=== PATIENT | female | born 1970 | race Two or more races ===

== ENCOUNTER 2019-05-25 13:33 | Emergency (ER) | payer MEDICAID ==
[~2019-05-25] VITALS: Ht 154.9 cm; Wt 80.0 kg
[2019-05-25 14:00] VITALS: BP 153/72
[2019-05-25] MEDS ORDERED: KETOROLAC 60MG/2ML VIAL IM ONE (14:45)
== END 2019-05-25 17:46 | disposition home or self-care (01) ==
LOC: ER 13:33
DX: N60.01 Solitary cyst of right breast (principal); Z90.710 Acquired absence of both cervix and uterus
CPT/HCPCS: 76641; 81025; 96372; 99284; J1885

== ENCOUNTER 2019-11-04 02:30 | Emergency (ER) | payer MEDICAID ==
[~2019-11-04] VITALS: Ht 154.9 cm; Wt 83.0 kg
[2019-11-04 02:54] VITALS: BP 118/74
[2019-11-04] MEDS ORDERED: KETOROLAC 30MG/ML VIAL IV STA (02:54)
[2019-11-04] MEDS ORDERED: SODIUM CHLORIDE 0.9% 1,000 ML IV ONE (02:54)
[2019-11-04 03:18] LABS: BASOPHILS % 0.9 % (0.0-2.0); HEMATOCRIT. 36.8 % (36.0-48.0); HEMOGLOBIN. 12.4 g/dL (12.0-16.0); LYMPHOCYTES % 36.9 % (20.0-50.0); MEAN CORPUSCULAR HEMOGLOBIN 28.5 pg (28.0-32.0); MEAN CORPUSCULAR VOLUME 84.5 fL (81.0-99.0); MEAN PLATELET VOLUME 8.3 fl (7.4-10.4); MONOCYTES % 10.2 % (2.0-8.0); PLATELET 286 x1000/uL (130-400); RED BLOOD CELL COUNT 4.36 mill/uL (4.2-5.4); RED CELL DISTRIBUTION WIDTH 13.8 % (11.6-14.6)
[2019-11-04 03:22] LABS: CHLORIDE 112 mEq/L (98-107)
[2019-11-04 04:14] LABS: CLARITY URINE CLEAR (CLEAR); COLOR URINE YELLOW (YELLOW); KETONES URINE NEGATIVE (NEGATIVE); LEUKOCYTE ESTERASE URINE NEGATIVE (NEGATIVE); NITRITE URINE NEGATIVE (NEGATIVE); OCCULT BLOOD URINE NEGATIVE (NEGATIVE); PROTEIN URINE NEGATIVE (NEGATIVE); SPECIFIC GRAVITY URINE 1.035 (1.005-1.030)
== END 2019-11-04 05:10 | disposition home or self-care (01) ==
LOC: ER 02:30
DX: R30.0 Dysuria (principal); Z90.710 Acquired absence of both cervix and uterus
CPT/HCPCS: 36415; 74176; 80053; 81003; 83690; 85025; 96361; 96374; 99284; J1885; J7030

== ENCOUNTER 2021-06-25 12:25 | Emergency (ER) | payer MEDICAID ==
[~2021-06-25] VITALS: Ht 157.5 cm; Wt 76.0 kg
[2021-06-25 13:27] LABS: BASOPHILS % 1.3 % (0.0-2.0); EOSINOPHILS % 2.6 % (0.0-5.0); HEMATOCRIT. 38.6 % (36.0-48.0); HEMOGLOBIN. 12.8 g/dL (12.0-16.0); MEAN CORPUSCULAR HEMOGLOBIN 28.5 pg (28.0-32.0); MEAN PLATELET VOLUME 9.1 fl (7.4-10.4); MONOCYTES % 6.8 % (2.0-8.0); NEUTROPHILS % 52.3 % (40.0-76.0); PLATELET 313 x1000/uL (130-400); RED BLOOD CELL COUNT 4.49 mill/uL (4.2-5.4); RED CELL DISTRIBUTION WIDTH 14.5 % (11.6-14.6)
[2021-06-25] MEDS ORDERED: KETOROLAC 60MG/2ML VIAL IM ONE (13:30)
[2021-06-25] MEDS ORDERED: MORPHINE SULFATE 10 MG/ML CPJ IM ONE (13:30)
[2021-06-25 13:34] LABS: CHLORIDE 107 mEq/L (98-107)
[2021-06-25 13:38] VITALS: BP 131/39
[2021-06-25] MEDS ORDERED: ASPIRIN 325MG EC TABLET PO ONE (13:45)
[2021-06-25] MEDS ORDERED: LIDO1ADH23 TP (16:18)
[2021-06-25] MEDS ORDERED: TOPUD PO (16:18)
[2021-06-25] MEDS ORDERED: IBUP-2028 MT (16:18)
== END 2021-06-25 16:44 | disposition home or self-care (01) ==
LOC: ER 12:25
DX: R07.89 Other chest pain (principal)
CPT/HCPCS: 36415; 71045; 80053; 83735; 83880; 84100; 84484; 85025; 93005; 96372; 99285; J1885; J2270